=== PATIENT | male | born 1970 | race Two or more races ===

== ENCOUNTER 2022-07-31 03:13 | Emergency (ER) | payer OTHER ==
[~2022-07-31] VITALS: Ht 185.4 cm; Wt 115.7 kg
--- NOTE | 2022-07-31 03:25 | NUR ---
CAMMY 877 FROM HOME FOR BACK PAIN X 4 DAYS W/ HX OF SCIATICA. PATIENT IS HAVING PAIN 10/. ALMOST CRYING. STRUGGLING TO WALK. AAOX4. ABLE TO MAKE NEEDS KNOWN.
[2022-07-31] MEDS ORDERED: CYCLOBENZAPRINE 10 MG TABLET ONE (03:58)
[2022-07-31] MEDS ORDERED: KETOROLAC TROMETHAMINE INJ 30 MG/ML VIAL ONE (03:58)
[2022-07-31] MEDS ORDERED: KETOROLAC TROMETHAMINE INJ 60 MG/2 ML VIAL IM ONE (04:00)
[2022-07-31] MEDS ORDERED: CYCLOBENZAPRINE 10 MG TABLET PO ONE (04:00)
[2022-07-31] MEDS ORDERED: ACETAMINOPHEN ES 500 MG TABLET PO ONE (04:30)
[2022-07-31] MEDS ORDERED: DIAZEPAM 5 MG TABLET PO ONE (04:30)
[2022-07-31] MEDS ORDERED: DIAZEPAM 5 MG TABLET ONE (04:31)
[2022-07-31] MEDS ORDERED: ACETAMINOPHEN ES 500 MG TABLET ONE (04:31)
[2022-07-31] MEDS ORDERED: CYCL5TAB PO (04:56)
--- NOTE | 2022-07-31 05:11 | NUR ---
Patient discharged to home in stable condition. Written and verbal after care instructions given. Patient verbalizes understanding of instruction.
[2022-07-31 05:12] VITALS: BP 142/92
== END 2022-07-31 05:12 | disposition home or self-care (01) ==
LOC: ER 03:15
DX: M54.50 Low back pain, unspecified (principal); E11.9 Type 2 diabetes mellitus without complications
CPT/HCPCS: 99284; 96372; J1885